=== PATIENT | female | born 1990 | race African-American/Black ===

== ENCOUNTER → 2024-10-15 | Day surgery (SDC) | payer MEDICAID ==
[~2024-10-15] VITALS: Ht 180.3 cm; Wt 67.6 kg
[~2024-10-15] MED LIST: BUPIVACAINE HCL/PF 0.5% (5MG/ML) 10ML ONE; FENTANYL CITRATE/PF 50MCG/ML 2ML VIAL ONE; FLUO10TA34 PO; HYDROMORPHONE HCL/PF 1MG/ML INJ IV PRN; LABETALOL 5MG/ML 4ML INJ IV PRN; MEPERIDINE HCL/PF 25MG/ML CPJ IV PRN; MIDAZOLAM HCL 2 MG/2 ML VIAL ONE; ONDANSETRON HCL 4MG/2ML INJ IV PRN; PROPOFOL 200MG/20ML VIAL IV ONE; SKIN ADHESIVE 0.7 GM EA TOP ONE
[2024-10-15] MEDS: LACTATED RINGERS 1,000 ML IV SCH (08:09)
[2024-10-15 10:52] LABS: HCG SCREEN NEGATIVE
== END | disposition home or self-care (01) ==
LOC: OR 07:17
PROVIDERS: ATTEND Surgery
DX: D21.12 Benign neoplasm of connective and other soft tissue of left upper limb, including shoulder (principal); E78.5 Hyperlipidemia, unspecified; F32.9 Major depressive disorder, single episode, unspecified; Z79.899 Other long term (current) drug therapy; Z98.890 Other specified postprocedural states
CPT/HCPCS: 24071; 84703; 88304; J3010; J0665; J2250; J2704